=== PATIENT | female | born 1970 | race Caucasian/White ===

== ENCOUNTER 2017-07-14 17:16 | Emergency (ER) ==
[2017-07-14 17:20] VITALS: BP 148/79; TEMP 99.7; BMI 29.6
[2017-07-14 18:17] LABS: BILIRUBIN,URINE Negative (NEGATIVE); KETONES,URINE Negative (NEGATIVE); LEUKOCYTE ESTERASE ,URINE 3+ (NEGATIVE); NITRITE,URINE Negative (NEGATIVE); PH,URINE 6.5 (5-9); PROTEIN,URINE Negative (NEGATIVE); URINE, BLOOD 2+ (NEGATIVE)
[2017-07-14 18:19] LABS: ADD URINE MICROSCOPIC YES
[2017-07-14 18:24] LABS: BACTERIA,URINE 1+ (NOT PRESENT)
--- NOTE | 2017-07-14 18:41 | ED.PDOC ---
General ED Provider: Dr. GRAHAM GEORGE Chief Complaint: Urinary Problem Stated Complaint: DYSURIA, HEMATURIA Time Seen by Physician: 17:17 (SEEN WITH FELIZ) Mode of Arrival: Walk-In Information Source: Patient Exam Limitations: No limitations Nursing and Triage Documentation Reviewed and Agree: Yes Complaint Exam - STD Male Complaint/Exam Symptoms Are: Still present Timing: Intermittent Initial Severity: Moderate Current Severity: Moderate Location: Reports: Suprapubic Aggravating: Reports: Voiding Alleviating: Reports: None Associated Signs and Symptoms: Reports: Dysuria. Denies: Penile sores, Scrotal pain, Scrotal swelling, Testicular pain, Testicular swelling Related Surgical History: Reports: None Differential Diagnoses: UTI Review of Systems - Review Of Systems Constitutional: Reports: No symptoms Eyes: Reports: No symptoms Ears, Nose, Mouth, Throat: Reports: No symptoms Respiratory: Reports: No symptoms Cardiac: Reports: No symptoms GI: Reports: No symptoms : Reports: Dysuria, Hematuria Musculoskeletal: Reports: No symptoms Skin: Reports: No symptoms Neurological: Reports: No symptoms Endocrine: Reports: No symptoms Hematologic/Lymphatic: Reports: No symptoms All Other Systems: Reviewed and Negative Past Medical History - Past Medical History Previously Healthy: Yes Endocrine: Reports: None Cardiovascular: Reports: None Respiratory: Reports: None Hematological: Reports: None Gastrointestinal: Reports: None Genitourinary: Reports: None Neuro/Psych: Reports: None Musculoskeletal: Reports: None Cancer: Reports: None Last Menstrual Period: NONE - Surgical History General Surgical History: Reports: None - Family History Family History: Reports: None - Social History Smoking Status: Current every day smoker Hx Substance Use: No Alcohol Screening: Occasionally Physical Exam - Physical Exam Appearance: Well-appearing, No pain distress, Well-nourished Eyes: KELSEA, EOMI, Conjunctiva clear ENT: Ears normal, Nose normal, Oropharynx normal Respiratory: Airway patent, Breath sounds clear, Breath sounds equal, Respirations nonlabored Cardiovascular: RRR, Pulses normal, No rub, No murmur GI/: Soft, Nontender, No masses, Bowel sounds normal, No Organomegaly Musculoskeletal: Normal strength, ROM intact, No edema, No calf tenderness Skin: Warm, Dry, Normal color Neurological: Sensation intact, Motor intact, Reflexes intact, Cranial nerves intact, Alert, Oriented Psychiatric: Affect appropriate, Mood appropriate Critical Care Note - Critical Care Note Total Time (mins): 0 Course - Course Orders, Labs, Meds: Lab Review 07/14/17 18:07 Urine Color Yellow Urine Clarity Clear Urine pH 6.5 Ur Specific [place] 1.010 Urine Protein Negative Urine Glucose (UA) Negative Urine Ketones Negative Urine Blood 2+ Urine Nitrite Negative Urine Bilirubin Negative Urine Urobilinogen 0.2 Ur Leukocyte Esterase 3+ Urine Microscopic RBC 10-20 Urine Microscopic WBC 30-50 Ur Squamous Epith Cells 5-10 Urine Bacteria 1+ Orders Category Date Time Status UA [URINALYSIS C & S IF INDICATED] Stat LAB 07/14/17 18:07 Completed URINE CULTURE Routine LAB 07/14/17 18:25 Received Vital Signs: Temp Pulse Resp BP Pulse Ox 07/14/17 17:17 99.7 F H 113 H 20 148/79 H 94 L Departure - Departure Time of Disposition: 18:41 Disposition: HOME SELF-CARE Discharge Problem: Urinary tract infectious disease Instructions: Urinary Tract Infection in Women (ED) Condition: Good Pt referred to PMD for follow-up: Yes Additional Instructions: Please call your Family Physician as soon as possible to schedule a follow-up appointment. Allergies/Adverse Reactions: Allergies No Known Allergies Allergy (Unverified 07/14/17 17:20) Home Medications: Ambulatory Orders 1 [No Reported Medications] 07/14/17
== END 2017-07-14 18:42 | disposition home or self-care (01) ==
LOC: ED 17:16
DX: N39.0 Urinary tract infection, site not specified (principal); F17.210 Nicotine dependence, cigarettes, uncomplicated
CPT/HCPCS: 81001; 87086; 87186; 99283